=== PATIENT | male | born 1990 | race Caucasian/White ===

== ENCOUNTER 2019-05-11 20:47 | Emergency (ER) | payer OTHER ==
[2019-05-11 20:56] VITALS: BP 150/78
--- NOTE | 2019-05-11 21:13 | ER Document Report ---
HPI - HPI Time Seen by Provider: 05/11/19 21:00 Notes: Patient is a 28-year-old male with no significant past medical history presents complaining of a generalized rash that is been progressing over the past couple days. Patient states that it started out with a fungal infection to his feet w hich he still has. He has been on oral antifungals as well as topical. Patient states that he started noticing spots on his trunk arms and face. All the areas itch. Denies any exposure to new chemicals/detergents/soaps/foods/meds otherwise. No recent illness. Denies any headache, fever, neck pain, URI, sore throat, chest pain, palpitations, syncope, cough, shortness of breath, wheeze, dyspnea, abdominal pain, nausea/vomiting/diarrhea, urinary retention, dysuria, hematuria, loss of control of bowel or bladder, numbness/tingling, saddle anesthesia, muscle paralysis/weakness. - ROS Systems Reviewed and Negative: Yes All other systems reviewed and negative Past Medical History - Social History Smoking Status: Unknown if Ever Smoked Family History: Reviewed & Not Pertinent Vertical Provider Document - CONSTITUTIONAL Agree With Documented VS: Yes Notes: PHYSICAL EXAMINATION: GENERAL: Well-appearing, well-nourished and in no acute distress. HEAD: Atraumatic, normocephalic. EYES: Pupils equal round and reactive to light, extraocular movements intact, sclera anicteric, conjunctiva are normal. ENT: EAC clear b/l. TM's intact b/l without erythema, fluid, or perforation. Nares patent and without discharge. oropharynx clear without exudates. No tonsilar hypertrophy or erythema. Moist mucous membranes. No sinus tenderness. NECK: Normal range of motion, supple without lymphadenopathy LUNGS: Breath sounds clear to auscultation bilaterally and equal. No wheezes rales or rhonchi. HEART: Regular rate and rhythm without murmurs, rubs, gallops. ABDOMEN: Soft, nontender, nondistended abdomen. No guarding, no rebound. No masses appreciated. Normal bowel sounds present. No CVA tenderness bilaterally. Musculoskeletal: FROM to passive/active. Strength 5+/5. Extremities: No cyanosis, clubbing, or edema b/l. Peripheral pulses 2+. Capillary refill less than 3 seconds. NEUROLOGICAL: Cranial nerves grossly intact. Normal speech, normal gait. Normal sensory, motor exams PSYCH: Normal mood, normal affect. SKIN: there are generalized papular small, some pinpoint, lesions noted including the face, but not involving the palms/soles/web spaces. There are macular dry, cracked areas to the feet b/l most consistent with fungal infection. Course - Re-evaluation Re-evalutation: 05/11/19 21:18 Patient is an afebrile, well-hydrated, 28-year-old male who presents with a nonspecific skin rash as well as a fungal infection to his feet. Vitals are except without significant tachycardia, tachypnea, or hypoxia. PE is otherwise unremarkable. Patient is nontoxic-appearing and is tolerating p.o. without difficulty. Low suspicion for any necrotizing fasciitis, SJS, SSS, drug reaction, sepsis, meningitis, syphilis, Lyme disease, [place] spotted fever, scabies, or other systemic emergent condition at this time. Patient aware that condition can change from initial presentation and he needs to monitor symptoms closely and seek medical attention with any acute changes. Recheck with your PCM in 3-5 days. Consider consult with dermatology. Return to the ED with any other worsening/concerning symptoms as reviewed. Patient is in agreement. - Vital Signs Vital signs: Temp Pulse Resp BP Pulse Ox 97.9 F 76 14 150/78 H 97 05/11/19 20:55 05/11/19 20:55 05/11/19 20:55 05/11/19 20:55 05/11/19 20:55 Discharge - Discharge Clinical Impression: Rash and nonspecific skin eruption Condition: Stable Disposition: HOME, SELF-CARE Additional Instructions: Keep the skin clean Wash with soap and water Tylenol/ibuprofen if needed Triple antibiotic ointment daily Take medication as directed Monitor for any worsening symptoms Recheck with your PCM in 3-5 days Consider consult with Dermatology for ongoing/worsening symptoms Return to the ED with any worsening symptoms and/or development of fever, headache, chest pain, palpitations, syncope, shortness of breath, trouble breathing, abdominal pain, n/v/d, abscess, purulent discharge, red streaks, worsening swelling, or other worsening symptoms that are concerning to you. Prescriptions: Prednisone [Deltasone 10 mg Tablet] 10 mg PO ASDIR PRN #21 tablet PRN Reason: Cephalexin Monohydrate [Keflex 500 mg Capsule] 500 mg PO TID #30 capsule Clotrimazole 1% Topical [Lotrimin 1% Topical Soln 10 ml] 1 applic TP BID #10 ml Referrals: IRENE HORTA DO [ACTIVE STAFF] - Follow up as needed
[2019-05-11] MEDS ORDERED: PREDNISONE 20 MG TABLET PO ONE (21:15)
[2019-05-11] MEDS ORDERED: CEPHALEXIN 500 MG CAPSULE PO ONE (21:16)
== END 2019-05-11 21:10 | disposition home or self-care (01) ==
LOC: ER 20:47
DX: R21 Rash and other nonspecific skin eruption (principal); B35.3 Tinea pedis
CPT/HCPCS: 99282; J7512

== ENCOUNTER 2020-03-24 22:23 | Emergency (ER) | payer OTHER ==
[2020-03-24] MEDS ORDERED: METHYLPREDNISOLONE INJ 125 MG/2 ML SDV IM ONE (22:58)
[2020-03-24] MEDS ORDERED: FAMOTIDINE 20 MG TABLET PO ONE (22:59)
--- NOTE | 2020-03-24 23:06 | ER Document Report ---
ED Skin Rash/Insect Bite/Abscs - General Chief Complaint: Rash Stated Complaint: POSSIBLE ALLERGIC REACTION Time Seen by Provider: 03/24/20 22:54 Mode of Arrival: Ambulatory Information source: Patient Notes: 29-year-old male presented ED for rash to the arm, legs, abdomen, chest, back, generalized. He states he has had this since Thursday and has not been able to sleep due to the itching. I have spoken with Dr. Fernando who came and examined the patient he recommended giving steroids and Pepcid now and send him home with a prescription for Atarax and Pepcid for home use. He states he does not think we should send him home with steroids as she has an appointment with dermatology on Thursday and this will change their treatment plan since they will not be able to see the rash. Constitutional: Negative for fever. HENT: Negative for sore throat. Eyes: Negative for visual changes. Cardiovascular: Negative for chest pain. Respiratory: Negative for shortness of breath. Gastrointestinal: Negative for abdominal pain, vomiting or diarrhea. Genitourinary: Negative for dysuria. Musculoskeletal: Negative for back pain. Skin: Red rash arms legs abdomen chest back generalized. He states it is been very itchy since Thursday. He states he does have a dermatology appointment on Thursday. 10 point ROS negative except as marked above and in HPI. PHYSICAL EXAMINATION: GENERAL: Well-appearing, well-nourished and in no acute distress. HEAD: Atraumatic, normocephalic. EYES: Pupils equal round and reactive to light, extraocular movements intact, sclera anicteric, conjunctiva are normal. ENT: nares patent, oropharynx clear without exudates. Moist mucous membranes. NECK: Normal range of motion, supple without lymphadenopathy LUNGS: Breath sounds clear to auscultation bilaterally and equal. No wheezes rales or rhonchi. HEART: Regular rate and rhythm without murmurs ABDOMEN: Soft, nontender, normoactive bowel sounds. No guarding, no rebound. No masses appreciated. EXTREMITIES: Normal range of motion, no pitting or edema. No cyanosis. NEUROLOGICAL: No focal neurological deficits. Moves all extremities spontaneously and on command. PSYCH: Normal mood, normal affect. SKIN: Red rash generalized very itchy. TRAVEL OUTSIDE OF THE [place] IN LAST 30 DAYS: No - HPI Patient complains to provider of: Skin rash/lesion Onset: Other - Thursday Onset/Duration: Persistent Quality of pain: No pain Severity: None Pain Level: Denies Skin Character: Rash Quality of rash: Itchy Identify cause: No Exacerbated by: Denies Relieved by: Denies Similar symptoms previously: Yes Recently seen / treated by doctor: No - Related Data Allergies/Adverse Reactions: Sulfa (Sulfonamide Antibiotics) Allergy (Verified 03/24/20 22:56) Past Medical History - General Information source: Patient - Social History Smoking Status: Never Smoker Frequency of alcohol use: Social Drug Abuse: None Occupation: [employer] Lives with: Family Family History: Reviewed & Not Pertinent Patient has suicidal ideation: No Patient has homicidal ideation: No - Past Medical History Cardiac Medical History: Reports: None Pulmonary Medical History: Reports: None EENT Medical History: Reports: None Neurological Medical History: Reports: None Endocrine Medical History: Reports: None Renal/ Medical History: Reports: None Malignancy Medical History: Reports None GI Medical History: Reports: None Musculoskeletal Medical History: Reports Hx Musculoskeletal Deformity, Reports Hx Musculoskeletal Trauma Skin Medical History: Reports Other - Atopic dermatitis Psychiatric Medical History: Reports: None Traumatic Medical History: Reports: None Infectious Medical History: Reports: None Past Surgical History: Reports: Hx Orthopedic Surgery - Knee shoulder and back - Immunizations Immunizations up to date: Yes Hx Diphtheria, Pertussis, Tetanus Vaccination: Yes Physical Exam - Vital signs Vitals: Temp Pulse Resp BP Pulse Ox 97.5 F 80 16 154/94 H 98 03/24/20 22:29 03/24/20 22:29 03/24/20 22:29 03/24/20 22:29 03/24/20 22:29 Course - Re-evaluation Re-evalutation: 03/24/20 23:09 Patient was treated with Solu-Medrol and Pepcid for his rash. Will be sent home with a prescription for Vistaril and Pepcid. To follow-up with heat treater apprentice on Thursday as scheduled. - Vital Signs Vital signs: Temp Pulse Resp BP Pulse Ox 97.5 F 80 16 154/94 H 98 03/24/20 22:59 03/24/20 22:29 03/24/20 22:29 03/24/20 22:29 03/24/20 22:29 Discharge - Discharge Clinical Impression: Rash and nonspecific skin eruption Condition: Stable Disposition: HOME, SELF-CARE Additional Instructions: You were seen today for a rash nonspecific. STEROID MEDICATION INJECTION: You have been given an injection of medicine of the cortisone/steroid class. This medication is used to control inflammation or allergy. It is often continued as a pill for a short period of time, until the acute process subsides. There are usually no side effects from short-term use of cortisone-like medications. Some persons feel an increased sense of well-being and are not sleepy at bedtime. Long-term use of cortisone medications is best avoided, unless required for a severe condition. If your condition does not remit, or relapses after the course of corticosteroid medication, you should consult your physician. ACID-SUPPRESSING MEDICATION: You have a prescription for medicine which reduces the stomach's secretion of acid. Examples include Zantac, Tagament, and Pepcid. These drugs are often used to allow healing of ulcers or esophagitis. They may be needed to prevent recurrence of ulcers in some patients, or to prevent damage from acid reflux in the esophagus. Take all medication as prescribed, even after the pain is gone. Regular antacids may be added as needed if you have symptoms while taking this medicine. These medications sometimes are prescribed for allergic reactions because they have anti-histaminic effects and relieve the rash and itching of the reaction. There are usually no side effects from this medication. But, in rare cases and particularly in the elderly, serious problems can occur. Contact your doctor if there is fever, rash, hallucinations, confusion, or unusual bruising. Contact your doctor at once if you develop lightheadedness, black or bloody stool, or bloody vomitus. ANTIHISTAMINES: An antihistamine has been given and/or prescribed to control your symptoms. Antihistamines are used for many reasons, including itching, watering eyes, runny nose, allergic swelling, hives, and insect stings. Antihistamines may cause drowsiness, especially with the first dose. Do not operate machinery or drive while under the effects of the medication. Other common side effects include dry mouth and eyes. In older persons, antihistamines can occasionally cause urinary retention, constipation, and trouble focusing the eyes. Do not combine the medication with alcohol, or with any other medication without talking to your doctor. FOLLOW-UP CARE: If you have been referred to a physician for follow-up care, call the physician s office for an appointment as you were instructed or within the next two days. If you experience worsening or a significant change in your symptoms, notify the physician immediately or return to the Emergency Department at any time for re-evaluation. Prescriptions: Hydroxyzine HCl [Atarax 10 mg Tablet] 10 mg PO TID PRN #30 tablet PRN Reason: Famotidine [Pepcid 20 mg Tablet] 20 mg PO DAILY #12 tablet Forms: Elevated Blood Pressure
[2020-03-24 23:50] VITALS: BP 148/89
== END 2020-03-24 23:25 | disposition home or self-care (01) ==
LOC: ER 22:23
DX: R21 Rash and other nonspecific skin eruption (principal); Z88.2 Allergy status to sulfonamides
CPT/HCPCS: 99284; 96372; J2930